=== PATIENT | female | born 1975 | race Caucasian/White ===

== ENCOUNTER 2018-03-23 16:17 | Emergency (ER) | payer BC ==
[~2018-03-23] VITALS: Ht 170.2 cm; Wt 61.2 kg
--- NOTE | 2018-03-23 16:23 | NUR ---
Dr Ames at the bedside for MSE.
[2018-03-23] MEDS ORDERED: [UNRECOGNIZED DRUG - REMARK] (16:28)
--- NOTE | 2018-03-23 16:44 | NUR ---
Pt walked to bathroom w/ steady gait. in the room w/ Pt.
[2018-03-23] MEDS ORDERED: ACETAMINOPHEN ES 500 MG TABLET PO ONE (17:00)
[2018-03-23] MEDS ORDERED: ACETAMINOPHEN ES 500 MG TABLET ONE (17:04)
--- NOTE | 2018-03-23 17:07 | NUR ---
Patient discharged to home in stable conditon. Written and verbal after care instructions given. Patient verbalizes understanding of instructions. Pt left Er acompained by .
[2018-03-23 17:08] VITALS: BP 90/62
== END 2018-03-23 17:09 | disposition home or self-care (01) ==
LOC: ER 16:20
DX: R56.9 Unspecified convulsions (principal); R51 Headache; R41.82 Altered mental status, unspecified
CPT/HCPCS: A4663; A9150